=== PATIENT | male | born 1970 | race Hispanic/Latino ===

== ENCOUNTER → 2021-02-18 | Outpatient (CLI) | payer MEDICAID | END | disposition home or self-care (01) | LOC: WHH 08:55 | PROVIDERS: ATTEND Internal Medicine Gastroenterology | DX: E11.622 Type 2 diabetes mellitus with other skin ulcer (principal); L98.492 Non-pressure chronic ulcer of skin of other sites with fat layer exposed; S31.829A Unspecified open wound of left buttock, initial encounter; E11.22 Type 2 diabetes mellitus with diabetic chronic kidney disease; I12.9 Hypertensive chronic kidney disease with stage 1 through stage 4 chronic kidney disease, or unspecified chronic kidney disease; N18.9 Chronic kidney disease, unspecified; E78.5 Hyperlipidemia, unspecified; G81.94 Hemiplegia, unspecified affecting left nondominant side; R26.9 Unspecified abnormalities of gait and mobility; Z86.73 Personal history of transient ischemic attack (TIA), and cerebral infarction without residual deficits; Z87.891 Personal history of nicotine dependence; X58.XXXA Exposure to other specified factors, initial encounter; Y93.89 Activity, other specified; Y92.89 Other specified places as the place of occurrence of the external cause; Y99.8 Other external cause status | CPT/HCPCS: 11042; 99205; A4450 ==

== ENCOUNTER → 2021-02-25 | Outpatient (CLI) | payer MEDICAID ==
[~2021-02-25] MED LIST: LIDOCAINE HCL 4% LTA SOL 4 ML VIAL ONE
== END | disposition home or self-care (01) ==
LOC: WHH 08:30
PROVIDERS: ATTEND Family Medicine
DX: E11.622 Type 2 diabetes mellitus with other skin ulcer (principal); L98.492 Non-pressure chronic ulcer of skin of other sites with fat layer exposed; S31.829D Unspecified open wound of left buttock, subsequent encounter; E11.22 Type 2 diabetes mellitus with diabetic chronic kidney disease; I12.9 Hypertensive chronic kidney disease with stage 1 through stage 4 chronic kidney disease, or unspecified chronic kidney disease; N18.9 Chronic kidney disease, unspecified; E78.5 Hyperlipidemia, unspecified; G81.94 Hemiplegia, unspecified affecting left nondominant side; R26.9 Unspecified abnormalities of gait and mobility; Z86.73 Personal history of transient ischemic attack (TIA), and cerebral infarction without residual deficits; Z87.891 Personal history of nicotine dependence; X58.XXXD Exposure to other specified factors, subsequent encounter
CPT/HCPCS: 11042

== ENCOUNTER → 2021-03-04 | Outpatient (CLI) | payer MEDICAID | END | disposition home or self-care (01) | LOC: WHH 08:18 | PROVIDERS: ATTEND Family Medicine | DX: E11.622 Type 2 diabetes mellitus with other skin ulcer (principal); L89.152 Pressure ulcer of sacral region, stage 2; L98.492 Non-pressure chronic ulcer of skin of other sites with fat layer exposed; S31.829D Unspecified open wound of left buttock, subsequent encounter; E11.22 Type 2 diabetes mellitus with diabetic chronic kidney disease; I12.9 Hypertensive chronic kidney disease with stage 1 through stage 4 chronic kidney disease, or unspecified chronic kidney disease; N18.9 Chronic kidney disease, unspecified; E78.5 Hyperlipidemia, unspecified; G81.94 Hemiplegia, unspecified affecting left nondominant side; R26.9 Unspecified abnormalities of gait and mobility; Z86.73 Personal history of transient ischemic attack (TIA), and cerebral infarction without residual deficits; Z87.891 Personal history of nicotine dependence; X58.XXXD Exposure to other specified factors, subsequent encounter | CPT/HCPCS: 11042 ==

== ENCOUNTER → 2021-03-18 | Outpatient (CLI) | payer MEDICAID | END | disposition home or self-care (01) | LOC: WHH 08:30 | PROVIDERS: ATTEND Family Medicine | DX: E11.622 Type 2 diabetes mellitus with other skin ulcer (principal); L89.152 Pressure ulcer of sacral region, stage 2; L98.492 Non-pressure chronic ulcer of skin of other sites with fat layer exposed; S31.829D Unspecified open wound of left buttock, subsequent encounter; E11.22 Type 2 diabetes mellitus with diabetic chronic kidney disease; I12.9 Hypertensive chronic kidney disease with stage 1 through stage 4 chronic kidney disease, or unspecified chronic kidney disease; N18.9 Chronic kidney disease, unspecified; E78.5 Hyperlipidemia, unspecified; G81.94 Hemiplegia, unspecified affecting left nondominant side; R26.9 Unspecified abnormalities of gait and mobility; Z86.73 Personal history of transient ischemic attack (TIA), and cerebral infarction without residual deficits; Z87.891 Personal history of nicotine dependence; X58.XXXD Exposure to other specified factors, subsequent encounter | CPT/HCPCS: 99214 ==

== ENCOUNTER 2023-12-28 06:50 | Day surgery (SDC) | payer MEDICARE ==
[2023-12-27 11:23] LABS: BASOPHILS # (AUTO) 0.06 K/uL (0.00-0.20); BASOPHILS % (AUTO) 0.8 % (0.0-5.0); EOSINOPHILS # (AUTO) 0.27 K/uL (0.00-0.70); EOSINOPHILS % (AUTO) 3.7 % (0.0-8.0); HEMATOCRIT 44.1 % (42-54); IMMATURE GRANULOCYTE ABSOLUTE 0.02 K/uL (0-1); LYMPHOCYTES # (AUTO) 1.6 K/uL (1.0-4.8); LYMPHOCYTES % (AUTO) 21.8 % (21.0-51.0); MEAN CORPUSCULAR HGB CONC 33.8 g/dL (32.0-36.0); MEAN CORPUSCULAR VOLUME 97.8 fL (79-99); MONOCYTES # (AUTO) 0.6 K/uL (0.1-1.0); MONOCYTES % (AUTO) 8.4 % (3.0-13.0); NEUTROPHILS # (AUTO) 4.7 K/uL (1.8-7.7); PLATELET COUNT (AUTO) 259 K/uL (130-400); RED BLOOD CELL COUNT(AUTO) 4.51 MIL/uL (4.50-6.20); RED CELL DISTRIBUTION WIDTH 13.4 % (11.0-15.5); WHITE BLOOD COUNT (AUTO) 7.3 K/uL (4.8-10.8)
[2023-12-27 11:30] LABS: POTASSIUM 5.3 mmol/L (3.5-5.1)
[2023-12-27 11:32] LABS: CREATININE 11.1 mg/dL (0.5-1.3)
[2023-12-27 11:38] LABS: INR <= 0.93 (0.85-1.15); PROTHROMBIN TIME 10.1 SEC (9.6-11.6)
[2023-12-27 11:40] VITALS: BP 152/77; PULSE 78; RESP 16
[2023-12-27 11:40] LABS: PARTIAL THROMBOPLASTIN TIME 37.2 SEC (26.3-35.5)
[~2023-12-28] VITALS: Ht 165.1 cm; Wt 57.8 kg
[2023-12-28] VITALS (16 sets, daily range): BP systolic 109–156; BP diastolic 64–81; PULSE 54–77; RESP 10–18
[~2023-12-28 06:50] MED LIST changes: +ATOR-2 PO; +BACL10TA PO; +DILT120T PO; +INSU100C6 SQ; +INSU100I22 SQ; +LEVO88CA4 PO; -LIDOCAINE HCL 4% LTA SOL 4 ML VIAL ONE; +METO-391 PO
[2023-12-28] MEDS: CEFAZOLIN SODIUM 2 GM VIAL ONE (07:42)
[2023-12-28] MEDS: 0.9% NACL 500ML IV.SOLN 500 ML IV ONE (07:43)
[2023-12-28 07:53] LABS: CREATININE 7.1 mg/dL (0.5-1.3)
[2023-12-28] MEDS ORDERED: ROCURONIUM BROMIDE 10MG/1ML 5ML VL ONE (08:28)
[2023-12-28] MEDS ORDERED: PROPOFOL 10 MG/ML 20ML VIAL IV ONE (08:28)
[2023-12-28] MEDS ORDERED: ONDANSETRON 4MG INJ ONE (08:28)
[2023-12-28] MEDS ORDERED: FENTANYL CITRATE PF 50 MCG/1 ML 2ML VIAL ONE (08:29)
[2023-12-28] MEDS ORDERED: PHENYLEPHRINE HCL 10 MG/ML 1ML VIAL IV ONE (08:58)
[2023-12-28] MEDS: BUPIVACAINE/PF 0.25% 30ML VIAL IJ ONE (09:01)
[2023-12-28] MEDS ORDERED: DOCU-116 PO (09:17)
[2023-12-28] MEDS ORDERED: TRAM50TA4 PO (09:17)
[2023-12-28] MEDS ORDERED: GLYCOPYRROLATE 0.2 MG/ML 5 ML VIAL ONE (09:17)
[2023-12-28] MEDS ORDERED: NEOSTIGMINE METHYLSULFATE 1MG/ML IV ONE (09:17)
== END 2023-12-28 11:10 | disposition home or self-care (01) ==
LOC: DAH 06:50
PROVIDERS: ATTEND Surgery
DX: L02.31 Cutaneous abscess of buttock (principal); I96 Gangrene, not elsewhere classified; I10 Essential (primary) hypertension; E11.9 Type 2 diabetes mellitus without complications; E78.5 Hyperlipidemia, unspecified; Z83.3 Family history of diabetes mellitus; Z82.49 Family history of ischemic heart disease and other diseases of the circulatory system; Z82.5 Family history of asthma and other chronic lower respiratory diseases; Z82.3 Family history of stroke; Z80.9 Family history of malignant neoplasm, unspecified; Z79.4 Long term (current) use of insulin; Z79.899 Other long term (current) drug therapy; Z87.891 Personal history of nicotine dependence
CPT/HCPCS: 80048 ×2; 85025; 85610; 85730; 86850; 86900; 86901; 36415 ×2; 93005; 11043; 82948 ×2; 88304; 11046 ×5; A6260; J0665; A4663; J7040; J3010; J3490 ×2; J2704; J2405; J2710; J2371; J0690; A6446; A4930 ×3; A4215; A4223; A4222; A4221; A4600